=== PATIENT | male | born 1995 | race African-American/Black ===

== ENCOUNTER 2017-01-24 10:12 | Emergency (ER) | payer SELFPAY ==
[~2017-01-24] VITALS: Ht 177.8 cm; Wt 77.1 kg
[2017-01-24 10:24] VITALS: BP 131/74
--- NOTE | 2017-01-24 10:42 | PHYS DOC ---
Past Medical History Past Medical History: No Pertinent History Past Surgical History: No Surgical History Alcohol Use: None Drug Use: Marijuana Adult General Chief Complaint Chief Complaint: THUMB HPI HPI Patient is a 21 year old male since emergency department stating that he has been having pain in the left thumb into the left wrist. He states that this is been going on for the last 2 weeks. He denies any injury or trauma. He states that he wanted to have this looked at today because he starts a new job this week. He does want to make sure there was nothing wrong with it. Patient states he is right-hand dominant. Patient denies taking anything for pain and discomfort. There does not appear to be any swelling or discoloration noted around the area. Cap refill brisk less than 2 seconds. He does have decreased range of motion of the thumb. Review of Systems Review of Systems Constitutional: Denies fever or chills [] Eyes: Denies change in visual acuity, redness, or eye pain [] HENT: Denies nasal congestion or sore throat [] Respiratory: Denies cough or shortness of breath [] Cardiovascular: No additional information not addressed in HPI [] GI: Denies abdominal pain, nausea, vomiting, bloody stools or diarrhea [] : Denies dysuria or hematuria [] Musculoskeletal: Denies back pain. C/o left thumb to the wrist pain and discomfort Integument: Denies rash or skin lesions [] Neurologic: Denies headache, focal weakness or sensory changes [] Endocrine: Denies polyuria or polydipsia [] Allergies Allergies Allergies Coded Allergies Type Severity Reaction Last Updated Verified No Known Drug Allergies 01/24/17 No Physical Exam Physical Exam Constitutional: Well developed, well nourished, no acute distress, non-toxic appearance. [] HENT: Normocephalic, atraumatic, bilateral external ears normal, oropharynx moist, no oral exudates, nose normal. [] Eyes: PERRLA, EOMI, conjunctiva normal, no discharge. [] Neck: Normal range of motion, no tenderness, supple, no stridor. [] Cardiovascular:Heart rate regular rhythm, no murmur [] Lungs & Thorax: Bilateral breath sounds clear to auscultation [] Skin: Warm, dry, no erythema, no rash. [] Back: No tenderness Extremities: Left thumb tenderness, no cyanosis, no clubbing, ROM intact, no edema. Decreased range of motion of the left thumb. No swelling or discoloration noted. Cap refill brisk less than 2 seconds. Radial pulses 2+. Neurologic: Alert and oriented X 3, normal motor function, normal sensory function, no focal deficits noted. [] Psychologic: Affect normal, judgement normal, mood normal. [] Current Patient Data Vital Signs Vital Signs Date Time Temp Pulse Resp B/P (MAP) Pulse Ox O2 Delivery O2 Flow Rate FiO2 01/24/17 10:24 98.4 63 12 99 Room Air 98.4 EKG EKG [] Radiology/Procedures Radiology/Procedures [][facility] [address] [place], [place] [id number] IMAGING REPORT Signed PATIENT: ALENA BLISS ACCOUNT: [id number] : 1995 LOCATION: ER AGE: 21 SEX: M EXAM STATUS: REG ER ORD. PHYSICIAN: MARY RIOS APRN REASON: pain in the left thumb with popping, no injury PROCEDURE: HAND LEFT 3V EXAM: Left hand, 3 views. HISTORY: Pain. COMPARISON: None. FINDINGS: Frontal, lateral and oblique views of the left hand are obtained. There is no fracture, dislocation or subluxation. No foreign body is seen. IMPRESSION: No acute osseous finding. DICTATED and SIGNED BY: BENNETT JIMENEZ MD DATE: 01/24/17 0850 CC: MARY RIOS APRN; NO PCP ~ Course & Med Decision Making Course & Med Decision Making Pertinent Labs and Imaging studies reviewed. (See chart for details) X-rays were negative for any bony abnormalities. Patient will be placed in a thumb spica splint with recommendations to follow-up with orthopedic. Recommended ice packs on 20 minutes off 20 minutes several times a day elevation as much as possible. Tylenol or ibuprofen for pain and discomfort. Patient was provided with signs and symptoms to return back to the emergency department. He'll be discharged home in stable condition. [] Dragon Disclaimer Dragon Disclaimer This electronic medical record was generated, in whole or in part, using a voice recognition dictation system. Departure Departure Impression: Primary Impression: Pain of left thumb Disposition: HOME, SELF-CARE Condition: STABLE Referrals: ROSINA JIANG MD Patient Instructions: Thumb Sprain Additional Instructions: X-rays were negative for any bony abnormalities. Keep the splint in place until you follow-up with orthopedic. Ice packs on 20 minutes off 20 minutes several times a day. Tylenol or ibuprofen for pain and discomfort. Follow-up with Dr. Jiang within the next week. Return back to emergency prior signs symptoms that become worse. Splinting Splinting : Location: left thumb Splint: thumb spica Pre-Proc Neuro Vasc Exam: normal Post-Proc Neuro Vasc Exam: normal MARY RIOS INTERNAL GRINDER January 24, 2017 10:42
--- NOTE | 2017-01-24 10:53 | RAD ---
EXAM: Left hand, 3 views. HISTORY: Pain. COMPARISON: None. FINDINGS: Frontal, lateral and oblique views of the left hand are obtained. There is no fracture, dislocation or subluxation. No foreign body is seen. IMPRESSION: No acute osseous finding.
== END 2017-01-24 11:19 | disposition home or self-care (01) ==
LOC: ER 10:12
DX: M79.645 Pain in left finger(s) (principal); F12.10 Cannabis abuse, uncomplicated
CPT/HCPCS: 29125; 29515; 73130; 99284-25

== ENCOUNTER 2020-09-11 13:32 | Emergency (ER) | payer BC ==
[~2020-09-11] VITALS: Ht 175.3 cm; Wt 81.8 kg
[2020-09-11 13:40] VITALS: BP 135/93
--- NOTE | 2020-09-11 15:05 | RAD ---
XR FINGER(S)_RIGHT 2+VIEWS DATE: 09/11/2020 1:59 PM INDICATION: Reason: finger pain 4th finger,tip of 4 th finger numb, pt hit wll with rt hand / Spl. I nstructions: / History: COMPARISON: None. FINDINGS: Tiny ossific fragment along the dorsal aspect of the fourth DIP joint. The joint spaces are normal. IMPRESSION: Tiny ossific fragment along the dorsal aspect of the fourth DIP joint, possibly an age indeterminate dorsal plate avulsion. Electronically signed by: Per Herrera MD (09/11/2020 3:03 PM) [id number]
--- NOTE | 2020-09-11 15:18 | PHYS DOC ---
Past Medical History Past Medical History: No Pertinent History Past Surgical History: No Surgical History Smoking Status: Current Every Day Smoker Alcohol Use: Rarely Drug Use: Marijuana General Adult EDM: Chief Complaint: FINGER INJURY HPI: HPI: Patient is a 24 year old right-handed male who presents to the ED today complaining of mild pain to the right ring finger that began today after he slammed his right hand on a table. Patient describes the pain as sharp and intermittent worse on touching the distal end of the finger. Review of Systems: Review of Systems: Constitutional: Denies fever or chills. [] Musculoskeletal: Reports right ring finger pain denies back pain or joint pain. [] Integument: Denies rash. [] Neurologic: Denies headache, focal weakness or sensory changes. [] Psychiatric: Denies depression or anxiety. [] Heart Score: Risk Factors: Risk Factors: DM, Current or recent (<one month) smoker, HTN, HLP, family history of CAD, obesity. Risk Scores: Score 0 - 3: 2.5% MACE over next 6 weeks - Discharge Home Score 4 - 6: 20.3% MACE over next 6 weeks - Admit for Clinical Observation Score 7 - 10: 72.7% MACE over next 6 weeks - Early Invasive Strategies Allergies: Allergies: Allergies Coded Allergies Type Severity Reaction Last Updated Verified No Known Drug Allergies 01/24/17 No Physical Exam: PE: Constitutional: Well developed, well nourished, no acute distress, non-toxic appearance. [] Skin: Warm, dry, no erythema, no rash. [] Back: No tenderness, no CVA tenderness. [] Extremities: Right ring finger with no obvious deformity. No tenderness on e xam. Full range of motion to the right ring finger. +2 right radial pulse. Cap refill less than 2 seconds the right ring finger. Adequate with no sensation to the right ring finger. Neurologic: Alert and oriented X 3, normal motor function, normal sensory function, no focal deficits noted. [] Psychologic: Affect normal, judgement normal, mood normal. [] Current Patient Data: Vital Signs: Vital Signs Date Time Temp Pulse Resp B/P (MAP) Pulse Ox O2 Delivery O2 Flow Rate FiO2 09/11/20 13:40 98.2 107 16 135/93 (107) 98 Room Air 98.2 EKG: EKG: [] Radiology/Procedures: Radiology/Procedures: []PROCEDURE: FINGER(S) RIGHT XR FINGER(S)_RIGHT 2+VIEWS DATE: 09/11/2020 1:59 PM INDICATION: Reason: finger pain 4th finger,tip of 4 th finger numb, pt hit wll with rt hand / Spl. Instructions: / History: COMPARISON: None. FINDINGS: Tiny ossific fragment along the dorsal aspect of the fourth DIP joint. The joint spaces are normal. IMPRESSION: Tiny ossific fragment along the dorsal aspect of the fourth DIP joint, possibly an age indeterminate dorsal plate avulsion. Electronically signed by: Jonathan León MD (09/11/2020 3:03 PM) [id number] DICTATED and SIGNED BY: JONATHAN LEÓN MD DATE: 09/11/20 [id number] 0 Course & Med Decision Making: Course & Med Decision Making Pertinent Labs and Imaging studies reviewed. (See chart for details) This is a 24-year-old male patient presented to the ED today with right ring finger that began after slamming his finger on a table. Right ring finger x- rays interpreted by radiologist were noted for possible old avulsion fracture of the right ring finger DIP end. Patient was placed in a finger splint by the ED nurse, neurovascular exam is intact, provided Ortho for follow-up. [place] Disclaimer: Rupal Disclaimer: This electronic medical record was generated, in whole or in part, using a voice recognition dictation system. Departure Departure Impression: Primary Impression: Avulsion fracture of distal phalanx of finger Qualified Codes: S62.639A - Displaced fracture of distal phalanx of unspecified finger, initial encounter for closed fracture Disposition: 01 DC HOME SELF CARE/HOMELESS Condition: STABLE Referrals: NO PCP (PCP) ROSINA VILLANUEVA MD follow up in one week Patient Instructions: Avulsion Fracture Additional Instructions: You were seen for right ring finger pain, your right ring finger shows a tiny avulsion fracture that appears old on x-ray of the finger. Try to ice elevate the extremity. You can take Tylenol or Motrin as needed for pain. Follow-up with your own doctor in 1 week with the provided orthopedic doctor ALEJANDRO ZARAGOZA APRN Sep 11, 2020 15:18
== END 2020-09-11 15:31 | disposition home or self-care (01) ==
LOC: ER 13:32
DX: S62.634A Displaced fracture of distal phalanx of right ring finger, initial encounter for closed fracture (principal); F17.200 Nicotine dependence, unspecified, uncomplicated; F12.90 Cannabis use, unspecified, uncomplicated; W23.0XXA Caught, crushed, jammed, or pinched between moving objects, initial encounter; Y93.89 Activity, other specified; Y92.89 Other specified places as the place of occurrence of the external cause; Y99.8 Other external cause status
CPT/HCPCS: 29130; 73140; 99283